=== PATIENT | male | born 1995 | race African-American/Black ===

== ENCOUNTER 2023-02-20 05:42 | Emergency (ER) | payer SELFPAY ==
[~2023-02-20] VITALS: Ht 167.6 cm; Wt 58.0 kg
[2023-02-20] VITALS (13 sets, daily range): BP systolic 112–145; BP diastolic 70–101
[2023-02-20 06:48] LABS: BASO% 0.4 % (0-3); EOS% 0.5 % (0-8); HEMOGLOBIN 14.7 g/dl (14.0-18.0); IMMATURE GRANULOCYTES 0.1 % (0.0-5.0); LYMPH% 10.1 % (15-41); MEAN CELL VOLUME 91.8 fL CALC (80.0-100.0); MEAN CORPUSCULAR HGB 29.3 pG CALC (26.0-32.0); MONO% 6.2 % (2-13); NEUT# 13.74 thou/uL (1.82-7.42); NEUT% 82.7 % (42-76); RED BLOOD COUNT 5.01 mill/uL (4.70-6.10); RED CELL DISTRI WIDTH 14.4 % (11.5-15.5)
[2023-02-20 07:14] LABS: ALKALINE PHOSPHATASE 177 u/l (38-126); ANION GAP 10 (6-22 (CALC)); BILIRUBIN, TOTAL 0.5 mg/dL (0.2-1.3); BUN 17 mg/dL (9-20); BUN/CREATININE RATIO 18 (12-20 (CALC)); CARBON DIOXIDE 25 mmol/l (22-30); CHLORIDE 111 mmol/l (95-108); CREATININE 0.9 mg/dL (0.7-1.3); ETHYL ALCOHOL 0 mg/dl (0-30); GFR FOR AFR.AMER. > 60 ML/MIN (>=60 (CALC)); GFR OTHER RACES > 60 ML/MIN (>=60 (CALC)); POTASSIUM 3.9 mmol/l (3.5-5.1); SGOT/AST 34 u/l (17-59); SODIUM 141 mmol/l (137-146); TOTAL PROTEIN 6.8 g/dL (6.3-8.2)
[2023-02-20] MEDS ORDERED: IBUPROFEN600 MG PO (09:46)
== END 2023-02-20 09:59 | disposition home or self-care (01) | DRG 605 ==
LOC: ED 05:42
PROVIDERS: Family Medicine
DX: S00.83XA Contusion of other part of head, initial encounter (principal); J45.909 Unspecified asthma, uncomplicated; Y04.2XXA Assault by strike against or bumped into by another person, initial encounter